=== PATIENT | female | born 1995 | race Caucasian/White ===

== ENCOUNTER 2016-08-14 11:52 | Emergency (ER) | payer MEDICAID ==
[~2016-08-14] VITALS: Ht 157.5 cm; Wt 60.0 kg
[~2016-08-14 11:52] MED LIST: [UNRECOGNIZED DRUG - CODE] PO
[2016-08-14 12:08] VITALS: Ht 157.5 cm; Wt 60.0 kg
[2016-08-14] MEDS ORDERED: morphine 4 MG/ML VIAL IV STA (13:10)
[2016-08-14] MEDS ORDERED: ONDANSETRON 4 MG INJ IV STA (13:13)
[2016-08-14] MEDS ORDERED: SOD CHLORIDE 0.9% 1,000 ML IV ONE (13:30)
[2016-08-14 13:38] LABS: ADD SCAN DIFF NO
[2016-08-14 13:41] LABS: BASOPHILS % 0.3 % (0.0-2.0); HEMATOCRIT 41.5 % (37.0-47.0); HEMOGLOBIN 13.5 g/dl (12.0-16.0); LYMPHOCYTES # 0.8 10^3/ul (0.8-2.9); LYMPHOCYTES % 6.5 % (15.0-51.0); MEAN CORPUSCULAR HEMOGLOBIN 28.7 pg (29.0-33.0); MEAN CORPUSCULAR HGB CONC 32.5 g/dl (32.0-37.0); MEAN CORPUSCULAR VOLUME 88.1 fl (82.0-101.0); MEAN PLATELET VOLUME 9.1 fl (7.4-10.4); MONOCYTE # 0.8 10^3/ul (0.3-0.9); MONOCYTES % 6.7 % (0.0-11.0); NEUTROPHIL # 10.3 10^3/ul (1.6-7.5); NEUTROPHILS % 86.2 % (39.0-77.0); PLATELET COUNT 284 10^3/UL (140-415); RED BLOOD COUNT 4.71 10^6/ul (4.20-5.40); RED CELL DISTRIBUTION WIDTH 12.5 % (11.5-14.5); WHITE BLOOD COUNT 11.9 10^3/ul (4.8-10.8)
[2016-08-14 13:51] LABS: ALBUMIN 4.8 g/dl (3.3-4.9)
[2016-08-14 13:52] LABS: POTASSIUM 3.8 mmol/L (3.5-5.1)
[2016-08-14 13:54] LABS: ADD UMIC YES; ALBUMIN/GLOBULIN RATIO 1.37; BILIRUBIN,INDIRECT 0.4 mg/dl (0-1.1); BILIRUBIN,TOTAL 0.4 mg/dl (0.2-1.3); CREATININE 0.53 mg/dl (0.44-1.00); TOTAL PROTEIN 8.3 g/dl (6.1-8.1); URINE BILIRUBIN (Dip) NEGATIVE (NEGATIVE); URINE BLOOD (Dip) 3+ (NEGATIVE); URINE COLOR YELLOW (YELLOW); URINE GLUCOSE (Dip) NEGATIVE (NEGATIVE); URINE KETONES (Dip) NEGATIVE (NEGATIVE); URINE LEUKOCYTE ESTERASE (Dip) NEGATIVE (NEGATIVE); URINE NITRITE (Dip) NEGATIVE (NEGATIVE); URINE TOTAL PROTEIN (Dip) 1+ (NEGATIVE); URINE UROBILINOGEN (Dip) 0.2 E.U./dL (0.1-1.0)
[2016-08-14 13:55] LABS: CALCIUM 9.3 mg/dl (8.4-10.2)
[2016-08-14] MEDS ORDERED: IOHEXOL 300MG/ML 30 ML BTL ONE (14:13)
[2016-08-14] MEDS ORDERED: SOD CHLORIDE 0.9% 100 ML ONE (14:13)
[2016-08-14 14:16] LABS: BACTERIA,URINE MANY; URINE RBCS >50 /HPF (0)
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
[2016-08-14] MEDS ORDERED: IBUP-1542 PO (16:03)
[2016-08-14] MEDS ORDERED: CYCL-319 PO (16:03)
[2016-08-14] MEDS ORDERED: HYDR-906 PO (16:03)
[2016-08-14 16:30] VITALS: BP 128/74; PULSE 68; RESP 18; TEMP 98.5
== END 2016-08-14 16:30 | disposition home or self-care (01) ==
LOC: FTE 11:52
DX: S60.512A Abrasion of left hand, initial encounter (principal); S39.93XA Unspecified injury of pelvis, initial encounter; S52.571A Other intraarticular fracture of lower end of right radius, initial encounter for closed fracture; R51 Headache; R10.2 Pelvic and perineal pain; V89.2XXA Person injured in unspecified motor-vehicle accident, traffic, initial encounter
CPT/HCPCS: 29125; 70450; 70486; 71010; 71260; 72125; 72170; 73090; 73130; 74177; 80053; 81001; 81003; 85025; 96374; 96375; J2270; J2405; J7030; Q9967; Z7502; Z7610